=== PATIENT | female | born 1995 | race Caucasian/White ===

== ENCOUNTER 2017-11-11 18:54 | Emergency (ER) | END 2017-11-11 21:12 | disposition home or self-care (01) ==

== ENCOUNTER 2017-11-13 09:10 | Emergency (ER) | END 2017-11-13 10:08 | disposition home or self-care (01) ==

== ENCOUNTER 2018-01-11 17:26 | Emergency (ER) | END 2018-01-11 18:11 | disposition home or self-care (01) ==

== ENCOUNTER 2018-05-25 13:12 | Emergency (ER) | payer OTHER ==
[~2018-05-25] VITALS: Wt 43.0 kg
[~2018-05-25 13:12] MED LIST: AMOX500C2 PO; CEPH-443 PO; HYDR-4011 PO; IBUP-1561 PO; MUPI22OI2 TOP; SULF1TAB31 PO
[2018-05-25] MEDS ORDERED: DOXY100T20 PO (14:35)
--- NOTE | 2018-05-25 14:39 | ERD ---
ER Documentation Chief Complaint Chief Complaint abcess on lt side of face x 1 week HPI Patient is a 23-year-old female presents the ER for concerns of facial abscess x 1 week. Patient has a history of cystic acne. She states she has a bump on the left side of her face. Patient denies fevers or chills. Patient denies any drainage or bleeding. Patient has not seen a director religious education. ROS All systems reviewed and are negative except as per history of present illness. Medications Home Meds Active Scripts Doxycycline Hyclate* (Doxycycline Hyclate*) 100 Mg Tablet.dr, 100 MG PO BID for 10 Days, TAB Prov:ANNETTE GARDNER PA-C 05/25/18 Hydrocodone/Acetaminophen (Prole 5-325 Tablet) 1 Each Tablet, 1 TAB PO TID PRN for PAIN, #9 TAB Prov:KEATON MARTIN MD 01/11/18 Ibuprofen* (Motrin*) 400 Mg Tab, 400 MG PO Q8, #15 TAB Prov:KEATON MARTIN MD 01/11/18 Amoxicillin* (Amoxicillin*) 500 Mg Cap, 500 MG PO TID for 10 Days, CAP Prov:KEATON MARTIN MD 01/11/18 Mupirocin* (Bactroban*) 2% -22 Gram Oint...g., 1 APPLIC TOP BID for 7 Days, EA Prov:MAKENZIE COVINGTON 11/11/17 Sulfamethoxazole/Trimethoprim* (Bactrim Ds* Tablet) 1 Each Tablet, 1 TAB PO BID, #14 TAB Prov:MAKENZIE COVINGTON 11/11/17 Cephalexin* (Keflex*) 500 Mg Capsule, 500 MG PO BID for 7 Days, CAP Prov:MAKENZIE COVINGTON 11/11/17 Allergies Allergies: Coded Allergies: No Known Allergy (Unverified , 11/13/17) PMhx/Soc History of Surgery: Yes (Heart surg.) Hx Miscellaneous Medical Probl: Yes (mentally delay) Hx Alcohol Use: No Hx Substance Use: No Hx Tobacco Use: No FmHx Family History: No diabetes Physical Exam Vitals Vital Signs Date Temp Pulse Resp B/P (MAP) Pulse Ox O2 O2 Flow FiO2 Time Delivery Rate 05/25/18 98.7 108 18 123/75 99 13:24 (91) Physical Exam GENERAL: Well-developed, well-nourished female. Appears in no acute distress. Speaking in full sentences. HEAD: Normocephalic, atraumatic. EYES: Pupils are equally reactive bilaterally. EOMs grossly intact. No conjunctival erythema. ENT: Moist mucous membranes. No uvula deviation. No kissing tonsils. NECK: Supple. No meningismus. Normal range of motion of the neck. LUNG: No respiratory distress. EXTREMITIES: Equal pulses bilaterally. No peripheral clubbing, cyanosis or edema. No unilateral leg swelling. NEUROLOGIC: Alert and oriented. Moving all four extremities without any difficulty. Normal speech. Steady gait. SKIN: Numerous cystic acne lesions noted on the patient's bilateral face. 1.5 cm round, tender, hard, nonfluctuant boil noted on the left face. No surrounding erythema or warmth. No streaking. Procedures/MDM MEDICAL DECISION MAKING: This is a 23-year-old female presents ER for concerns of facial abscess times 1 week. Vital signs were reviewed. Patient was afebrile. Patient is not diabetic. Skin exam revealed boil to the patient's left face. Lesion was indurated. There is no fluctuance. No indication for incision and drainage at this time. Patient will be given doxycycline. Patient has cystic acne and was advised to follow-up with a director religious education for further management of her ongoing symptoms. Low suspicion for necrotizing fasciitis, sepsis, gangrene, Kana-Alex syndrome, toxic epidural necrolysis, facial cellulitis or sepsis. Patient was nontoxic, [id number] prior to discharge. PRESCRIPTIONS: Doxycycline DISCHARGE: At this time, patient is stable for discharge and outpatient management. I have advised the patient to avoid any new products, creams or possible allergens. I have advised the patient to avoid scratching the lesions. I have instructed the patient to follow-up with his/her primary care physician in 1-2 days. If symptoms persist, patient may need to see a director religious education for further examinations and testing. I have instructed the patient to promptly return to the ER at any time for any new or worsening symptoms including increased pain, fever, redness, swelling, warmth, difficulty breathing or vomiting. The patient and/or family expressed understanding of and agreement with this plan. All questions were answered. Home care instructions were provided. Disclaimer: Inadvertent spelling and grammatical errors are likely due to EHR/dictation software use and do not reflect on the overall quality of patient care. Also, please note that the electronic time recorded on this note does not necessarily reflect the actual time of the patient encounter. Departure Diagnosis: Primary Impression: Boil, face Additional Impression: Cystic acne Condition: Fair Patient Instructions: Acne (Child) Referrals: FELISA CHO MD, GREG J MD Additional Instructions: Llama la dermatologia para nikko norma. Llame al doctor MAANA y lakisha nikko NORMA PARA DENTRO DE 1-2 PEREZ.Dgale a la secretaria que nosotros le instruimos hacer esta norma.Avise o llame si powell condicin se empeora antes de la norma. Regresa aqui si peor o no mejor. ANNETTE GARDNER PA-C May 25, 2018 14:39
== END 2018-05-25 15:16 | disposition home or self-care (01) ==
LOC: FTE 13:12
DX: L02.02 Furuncle of face (principal); L70.0 Acne vulgaris
CPT/HCPCS: 99283